=== PATIENT | male | born 1970 | race Caucasian/White ===

== ENCOUNTER 2017-05-07 06:21 | Day surgery (SDC) | payer OTHER ==
[~2017-05-07] VITALS: Ht 190.5 cm; Wt 127.9 kg
[~2017-05-07 06:21] MED LIST: CLONAZEPAM1 MG PO; COZAAR100 MG PO; ESCITALOPRAM OX20 MG PO; HYDROCHLOROT25 MG PO; OMEPRAZOLE20 M1 PO; TOPIRAMATE50 MG PO
[2017-05-07] MEDS ORDERED: PERCOCET 5/325M1 TAB PO (09:24)
[2017-05-07 10:00] VITALS: BP 100/66
== END 2017-05-07 10:20 | disposition home or self-care (01) | DRG 581 ==
LOC: ORM 06:21
PROVIDERS: ATTEND Surgery
PROC: 0HB9XZZ Excision of Perineum Skin, External Approach (ICD-10-PCS; principal; 2017-05-07)
DX: L98.499 Non-pressure chronic ulcer of skin of other sites with unspecified severity (principal); I10 Essential (primary) hypertension
CPT/HCPCS: J2710

== ENCOUNTER 2017-05-12 15:18 | Emergency (ER) | payer OTHER ==
[~2017-05-12] VITALS: Ht 190.5 cm; Wt 128.2 kg
[~2017-05-12 15:18] MED LIST changes: +PERCOCET 5/325M1 TAB PO
[2017-05-12] MEDS ORDERED: AMOXICILLIN/PO500 MG PO (17:36)
[2017-05-12 17:37] VITALS: BP 133/80
== END 2017-05-12 17:47 | disposition home or self-care (01) | DRG 921 ==
LOC: ED 15:18
PROC: 0HQ8XZZ Repair Buttock Skin, External Approach (ICD-10-PCS; principal; 2017-05-12)
DX: T81.31XA Disruption of external operation (surgical) wound, not elsewhere classified, initial encounter (principal); I10 Essential (primary) hypertension; K21.9 Gastro-esophageal reflux disease without esophagitis; F41.9 Anxiety disorder, unspecified; Y83.8 Other surgical procedures as the cause of abnormal reaction of the patient, or of later complication, without mention of misadventure at the time of the procedure

== ENCOUNTER 2017-05-17 12:07 | Emergency (ER) | payer OTHER ==
[~2017-05-17] VITALS: Ht 190.5 cm; Wt 120.0 kg
[~2017-05-17 12:07] MED LIST changes: +AMOXICILLIN/PO500 MG PO
[2017-05-17] MEDS ORDERED: CIPROFLOXACN750 MG PO (12:56)
[2017-05-17] MEDS ORDERED: COLACE100 MG PO (12:57)
[2017-05-17] MEDS ORDERED: LORTAB 5-325 MG1 TAB PO (12:57)
[2017-05-17] MEDS ORDERED: PERCOCET 5/325M1 TAB PO (13:14)
[2017-05-17 15:17] VITALS: BP 127/86
== END 2017-05-17 15:32 | disposition home or self-care (01) | DRG 863 ==
LOC: ED 12:07
DX: T81.4XXA Infection following a procedure, initial encounter (principal); Z48.02 Encounter for removal of sutures; T81.30XA Disruption of wound, unspecified, initial encounter

== ENCOUNTER 2019-02-15 17:10 | Emergency (ER) | payer OTHER ==
[~2019-02-15] VITALS: Ht 190.5 cm; Wt 111.0 kg
[~2019-02-15 17:10] MED LIST changes: +CIPROFLOXACN750 MG PO; +COLACE100 MG PO; +LORTAB 5-325 MG1 TAB PO
[2019-02-15 17:53] LABS: HEMATOCRIT 41.6 % (39.0-50.0); HEMOGLOBIN 14.6 g/dl (14.0-18.0); IMMATURE GRANULOCYTES 0.3 % (0.0-5.0); MEAN CELL VOLUME 83.4 fL CALC (80.0-100.0); MEAN CORPUSCULAR HGB 29.3 pG CALC (26.0-32.0); MEAN CORPUSCULAR HGB CONC 35.1 g/L CALC (32.0-36.0); NEUT# 6.08 thou/uL (1.82-7.42); RED BLOOD COUNT 4.99 mill/uL (4.70-6.10); RED CELL DISTRI WIDTH 12.8 % (11.5-15.5)
[2019-02-15 17:58] LABS: ALBUMIN 4.3 g/dL (3.2-5.0); ALKALINE PHOSPHATASE 66 u/l (38-126); ANION GAP 14 (6-22 (CALC)); BILIRUBIN, TOTAL 0.5 mg/dL (0.0-1.4); BUN 23 mg/dL (9-20); BUN/CREATININE RATIO 20 (12-20 (CALC)); CARBON DIOXIDE 27 mmol/l (22-30); CHLORIDE 103 mmol/l (95-108); CREATININE 1.2 mg/dL (0.7-1.3); GFR > 60 ML/MIN (>=60 (CALC)); GFR FOR AFR.AMER. > 60 ML/MIN (>=60 (CALC)); LIPASE 138 u/l (23-300); POTASSIUM 4.3 mmol/l (3.5-5.1); SGOT/AST 28 u/l (17-59); SODIUM 140 mmol/l (137-146)
[2019-02-15 19:00] VITALS: BP 143/74
== END 2019-02-15 19:04 | disposition home or self-care (01) | DRG 310 ==
LOC: ED 17:10
PROVIDERS: Emergency Medicine
DX: R00.2 Palpitations (principal); R42 Dizziness and giddiness; R07.89 Other chest pain; R53.83 Other fatigue; I10 Essential (primary) hypertension